=== PATIENT | male | born 1990 | race African-American/Black ===

== ENCOUNTER 2016-08-27 08:09 | Emergency (ER) | payer BC, OTHER ==
[~2016-08-27] VITALS: Ht 177.8 cm; Wt 90.0 kg
[~2016-08-27 08:09] MED LIST: AZIT250T74 PO; Z.0.NO CURRENT MEDS
[2016-08-27 08:14] VITALS: BP 163/80; PULSE 90; RESP 20; TEMP 97.7; O2SAT 98
[2016-08-27] MEDS ORDERED: SODIUM CHLORIDE 0.9% FLUSH 10 ML FLUSH IV FLUSH PRN (08:30)
[2016-08-27] MEDS ORDERED: HYDROmorphone HCL PF 1 MG/ML VIAL IVS ONE (08:30)
[2016-08-27] MEDS ORDERED: ONDANSETRON HCL 4 MG/2 ML VIAL IVP ONE (08:30)
[2016-08-27 08:54] LABS: AUTOMATED NEUTROPHIL # 5.5 TH/MM3 (1.8-7.7); BASOPHIL # 0.1 TH/MM3 (0-0.2); BASOPHIL % 0.5 % (0.0-2.0); EOSINOPHIL # 0.2 TH/MM3 (0-0.4); EOSINOPHIL % 1.9 % (0.0-4.0); HEMATOCRIT 47.1 % (39.0-51.0); HEMO FLAGS DIFF FINAL; LYMPH % 35.9 % (9.0-44.0); LYMPHOCYTE # 3.8 TH/MM3 (1.0-4.8); MEAN CELL VOLUME 88.5 FL (80.0-100.0); MEAN CORPUSCULAR HEMOGLOBIN 28.9 PG (27.0-34.0); MEAN CORPUSCULAR HGB CONC 32.7 % (32.0-36.0); MONO % 8.7 % (0.0-8.0); PLATELET COUNT 204 TH/MM3 (150-450); RED BLOOD COUNT 5.32 MIL/MM3 (4.50-5.90); RED CELL DISTRIBUTION WIDTH 14.2 % (11.6-17.2); WHITE BLOOD COUNT 10.5 TH/MM3 (4.0-11.0)
[2016-08-27 09:04] LABS: BLOOD, URINE NEG (NEG); COMMENT (UR) CULT NOT INDICATED; CULTURE IF INDICATED CULT NOT INDICATED; GLUCOSE,URINE NEG (NEG); KETONE, URINE NEG (NEG); MUCUS URINE FEW /lpf (OCC); NITRITE,URINE NEG (NEG); PH, URINE 5.5 (5.0-8.5); URINE COLOR YELLOW (YELLW/STRAW)
--- NOTE | 2016-08-27 09:10 | RADRPT ---
EXAM DATE/TIME: 08/27/2016 08:41 [place] COMPARISON: No previous studies available for comparison. INDICATIONS : Left side abdominal and flank pain. ORAL CONTRAST: No oral contrast ingested. RADIATION DOSE: 16.8 CTDIvol (mGy) MEDICAL HISTORY : None SURGICAL HISTORY : None. ENCOUNTER: Initial ACUITY: 1 day PAIN SCALE: 10/10 LOCATION: Left flank TECHNIQUE: Volumetric scanning of the abdomen and pelvis was performed. Using automated exposure control and ad justment of the mA and/or kV according to patient size, radiation dose was kept as low as reasonably achievable to obtain optimal diagnostic quality images. FINDINGS: LOWER LUNGS: The visualized lower lungs are clear. LIVER: Homogeneous density without lesion. There is no dilation of the biliary tree. No calcified gallston es. SPLEEN: Normal size without lesion. PANCREAS: Within normal limits. KIDNEYS: Normal in size and shape. There is no mass or hydronephrosis on the right. Subtle hyperdensities. Pu nctate calculus distal left ureter. Slight prominence left ureter. ADRENAL GLANDS: Within normal limits. VASCULAR: There is no aortic aneurysm. BOWEL/MESENTERY: The stomach, small bowel, and colon demonstrate no acute abnormality. There is no free intraperitone al air or fluid. ABDOMINAL WALL: Within normal limits. RETROPERITONEUM: There is no lymphadenopathy. BLADDER: No wall thickening or mass. REPRODUCTIVE: Within normal limits. INGUINAL: There is no lymphadenopathy or hernia. MUSCULOSKELETAL: Within normal limits for patient age. CONCLUSION: 1. Punctate calculus distal left ureter measuring 1-2 mm causing very minimal obstruction. 2. 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 Angel Lopez MD on August 27, 2016 at 9:05 Board Certified Radiologist. This report was verified electronically.
[2016-08-27 09:19] LABS: ALKALINE PHOSPHATASE 113 U/L (45-117); ALT (GPT) 34 U/L (12-78); ANION GAP 10 MEQ/L (5-15); BICARBONATE 27.4 MEQ/L (21.0-32.0); BLOOD UREA NITROGEN 11 MG/DL (7-18); CHLORIDE 105 MEQ/L (98-107); GLOMERULAR FILTRATION RATE 81 ML/MIN (>89); SODIUM (NA) 142 MEQ/L (136-145); TOTAL BILIRUBIN ADULT 0.2 MG/DL (0.2-1.0)
[2016-08-27 09:20] LABS: AST (GOT) 25 U/L (15-37); POTASSIUM 3.5 MEQ/L (3.5-5.1)
[2016-08-27] MEDS ORDERED: HYDROmorphone HCL PF 1 MG/ML VIAL IV PUSH ONE (09:30)
[2016-08-27] MEDS ORDERED: KETOROLAC TROMETHAMINE 30 MG/ML (IVP) VIAL IV PUSH ONE (09:30)
[2016-08-27] MEDS ORDERED: SODIUM CHLOR 0.9% 1000 ML INJ 1,000 ML IV ONE (09:30)
--- NOTE | 2016-08-27 09:34 | PD ---
HPI Chief Complaint: Abdominal Pain Time Seen by Provider: 08:21 Travel History International Travel<30 days: No Contact w/Intl Traveler<30days: No Traveled to known affect area: No History of Present Illness HPI This is a 25-year-old male who presents to the emergency department with left upper quadrant abdominal pain that started suddenly, waking him up from sleep this morning, sharp and stabbing. He vomited twice this morning. He's never had pain like this before. He denies any hematuria, fevers or chills. He's never had any bowel surgery. He denies any radiation of the pain. [facility] Past Medical History Medical History: Denies Significant Hx Immunizations Current: Yes Past Surgical History Surgical History: No Previous Surgery Social History Alcohol Use: Yes (SOCIALLY) Tobacco Use: Yes (SOCIALLY) Substance Use: No Allergies-Medications (Allergen,Severity, Reaction): Coded Allergies: No Known Allergies (Verified , 09/27/08) Reported Meds & Prescriptions Reported Meds & Active Scripts Active Reported Zithromax (Azithromycin) 250 Mg Tab 250 Mg PO DAILY No Current Meds (Miscellaneous Medication) Misc Review of Systems Except as stated in HPI: all other systems reviewed are Neg Physical Exam Narrative GENERAL: Uncomfortable, writhing in bed SKIN: Focused skin assessment warm and dry. HEAD: Atraumatic. Normocephalic. EYES: Pupils equal and round. No injection or drainage. ENT: Moist mucous membranes NECK: Trachea midline. CARDIOVASCULAR: Regular rate and rhythm. No murmur appreciated. RESPIRATORY: Clear to auscultation. Breath sounds equal bilaterally. GASTROINTESTINAL: Abdomen soft, non-tender, nondistended. : Left CVA tenderness MUSCULOSKELETAL: No obvious deformities. NEUROLOGICAL: Awake and alert. No obvious cranial nerve deficits. Moving all extremities. PSYCHIATRIC: Appropriate mood and affect; insight and judgment normal. Data Data Last Documented VS Vital Signs Date Time Temp Pulse Resp B/P Pulse Ox O2 Delivery O2 Flow Rate FiO2 08/27/16 08:27 Room Air 08/27/16 08:14 97.7 90 20 163/80 98 Orders Complete Blood Count With Diff (08/27/16 08:24) Comprehensive Metabolic Panel (08/27/16 08:24) Lipase (08/27/16 08:24) Urinalysis - C+S If Indicated (08/27/16 08:24) Ct Abd/Pel W/O Iv Contrast (08/27/16 08:24) Iv Access Insert/Monitor (08/27/16 08:24) Ecg Monitoring (08/27/16 08:24) Oximetry (08/27/16 08:24) Ondansetron Inj (Zofran Inj) (08/27/16 08:30) Sodium Chloride 0.9% Flush (Ns Flush) (08/27/16 08:30) Hydromorphone Pf Inj (Dilaudid Pf Inj) (08/27/16 08:30) Ketorolac Inj (Toradol Inj) (08/27/16 09:30) Hydromorphone Pf Inj (Dilaudid Pf Inj) (08/27/16 09:30) Sodium Chlor 0.9% 1000 Ml Inj (Ns 1000 M (08/27/16 09:30) Labs Laboratory Tests Test 08/27/16 08:30 White Blood Count 10.5 TH/MM3 Red Blood Count 5.32 MIL/MM3 Hemoglobin 15.4 GM/DL Hematocrit 47.1 % Mean Corpuscular Volume 88.5 FL Mean Corpuscular Hemoglobin 28.9 PG Mean Corpuscular Hemoglobin 32.7 % Concent Red Cell Distribution Width 14.2 % Platelet Count 204 TH/MM3 Mean Platelet Volume 8.3 FL Neutrophils (%) (Auto) 53.0 % Lymphocytes (%) (Auto) 35.9 % Monocytes (%) (Auto) 8.7 % Eosinophils (%) (Auto) 1.9 % Basophils (%) (Auto) 0.5 % Neutrophils # (Auto) 5.5 TH/MM3 Lymphocytes # (Auto) 3.8 TH/MM3 Monocytes # (Auto) 0.9 TH/MM3 Eosinophils # (Auto) 0.2 TH/MM3 Basophils # (Auto) 0.1 TH/MM3 CBC Comment DIFF FINAL Differential Comment Urine Color YELLOW Urine Turbidity CLEAR Urine pH 5.5 Urine Specific [place] 1.027 Urine Protein TRACE mg/dL Urine Glucose (UA) NEG mg/dL Urine Ketones NEG mg/dL Urine Occult Blood NEG Urine Nitrite NEG Urine Bilirubin NEG Urine Urobilinogen LESS THAN 2.0 MG/DL Urine Leukocyte Esterase TRACE Urine RBC LESS THAN 1 /hpf Urine WBC 3 /hpf Urine Mucus FEW /lpf Microscopic Urinalysis Comment CULT NOT INDICATED Sodium Level 142 MEQ/L Potassium Level 3.5 MEQ/L Chloride Level 105 MEQ/L Carbon Dioxide Level 27.4 MEQ/L Anion Gap 10 MEQ/L Blood Urea Nitrogen 11 MG/DL Creatinine 1.33 MG/DL Estimat Glomerular Filtration 81 ML/MIN Rate Random Glucose 130 MG/DL Calcium Level 9.1 MG/DL Total Bilirubin 0.2 MG/DL Aspartate Amino Transf 25 U/L (AST/SGOT) Alanine Aminotransferase 34 U/L (ALT/SGPT) Alkaline Phosphatase 113 U/L Total Protein 8.0 GM/DL Albumin 4.0 GM/DL Lipase 111 U/L [facility] Medical Decision Making Medical Screen Exam Complete: Yes Emergency Medical Condition: Yes Interpretation(s) Afebrile, no tachycardia, hypertensive No leukocytosis Creatinine is 1.3 Lipase is 111 Urinalysis: Urinary tract infection Differential Diagnosis Nephrolithiasis, pancreatitis, obstructive uropathy Narrative Course This is a 25-year-old male who presents to the emergency department with severe fairly abrupt onset left-sided abdominal pain associated with vomiting. He was placed on a monitor and an IV was established. Vital signs demonstrate some hypertension likely in the setting of pain. Labs are reassuring with a normal lipase. CT abdomen and pelvis demonstrates a small distal left ureteral stone. Patient feels much better following 2 mg of IV Dilaudid, Zofran and IV fluids. He was reassessed multiple times. Patient will be discharged home. Diagnosis Primary Impression: Nephrolithiasis Patient Instructions: General Instructions Additional Instructions: If you develop severe pain, inability to eat or drink, or fever return to the emergency department. Use a strainer to try to catch your stone. Take percocet as needed for pain, and continue taking zofran as needed for nausea. Follow up with urology as soon as possible. Med/Other Pt SpecificInfo: Prescription(s) given Scripts Ondansetron Odt (Zofran Odt)4 Mg Tab4 Mg SL Q6HR PRN (Nausea/Vomiting) #15 TAB Prov:Jayne Fonseca MD 08/27/16 Hydrocodone-Acetaminophen (Lortab)5-325 Mg Tab1 Tab PO Q6H PRN (PAIN) #14 TAB Ref 0 Prov:Jayne Fonseca MD 08/27/16 Disposition: DISCHARGE HOME Condition: Stable Jayne Fonseca MD August 27, 2016 09:34
[2016-08-27 10:33] VITALS: BP 138/79; PULSE 81; RESP 16; O2SAT 98
[2016-08-27] MEDS ORDERED: HYDR-3533 PO (10:33)
[2016-08-27] MEDS ORDERED: ZOFR4TAB3 SL (10:34)
== END 2016-08-27 10:41 | disposition home or self-care (01) ==
LOC: NEPE 08:09
DX: N20.0 Calculus of kidney (principal); R11.10 Vomiting, unspecified; Z72.0 Tobacco use
CPT/HCPCS: 74176; 80053; 81001; 83690; 85025; 96361; 96374; 96375; 96376; 99284; J1170; J1885; J2405; J7030